=== PATIENT | female | born 2000 | race Native Hawaiian/Other Pacific Islander ===

== ENCOUNTER 2018-03-01 19:19 | Outpatient (CLI) | payer OTHER | END 2018-03-01 19:49 | disposition short-term general hospital (02) | LOC: AMB 19:19 | DX: S09.90XA Unspecified injury of head, initial encounter (principal); R06.09 Other forms of dyspnea; S89.82XA Other specified injuries of left lower leg, initial encounter; S89.81XA Other specified injuries of right lower leg, initial encounter; S49.82XA Other specified injuries of left shoulder and upper arm, initial encounter; S49.81XA Other specified injuries of right shoulder and upper arm, initial encounter; I46.9 Cardiac arrest, cause unspecified; V49.59XA Passenger injured in collision with other motor vehicles in traffic accident, initial encounter; Y92.414 Local residential or business street as the place of occurrence of the external cause | CPT/HCPCS: A0425; A0427 ==

== ENCOUNTER 2018-03-01 19:55 | Emergency (ER) | payer OTHER ==
[~2018-03-01] VITALS: Ht 157.5 cm; Wt 68.0 kg
== END 2018-03-01 21:50 | disposition expired ==
LOC: ED 19:55
DX: T14.90XA Injury, unspecified, initial encounter (principal); V43.62XA Car passenger injured in collision with other type car in traffic accident, initial encounter
CPT/HCPCS: 99291